=== PATIENT | female | born 1980 | race Caucasian/White ===

== ENCOUNTER 2018-01-27 12:14 | Emergency (ER) | payer MEDICAID ==
[~2018-01-27] VITALS: Ht 172.7 cm; Wt 100.9 kg
[2018-01-27 12:17] VITALS: Ht 172.7 cm; Wt 100.9 kg
[2018-01-27] MEDS ORDERED: TEGRETOL200 MG PO (12:20)
[2018-01-27] MEDS ORDERED: XANAX1 MG PO (12:21)
[2018-01-27] MEDS ORDERED: LEXAPRO20 MG PO (12:22)
[2018-01-27] MEDS ORDERED: ZYPREXA2.5 MG PO (12:22)
[2018-01-27] MEDS ORDERED: ZESTRIL40 MG PO (12:22)
[2018-01-27] MEDS ORDERED: COUMADIN3 MG PO (12:23)
[2018-01-27] MEDS ORDERED: DILANTIN100 MG PO (12:40)
[2018-01-27 13:22] LABS: BASOPHILS 0.2 % (0-2); EOSINOPHILS 1.3 % (0-7); HEMATOCRIT 40.9 % (36.0-48.0); HEMOGLOBIN 13.3 g/dL (12-16); IMMATURE GRANULOCYTES 0.2 % (0-5); LYMPHOCYTES 23.6 % (15-50); MCH 25.2 pg (26.0-34.0); MCHC 32.5 g/dL (31.0-37.0); MCV 77.6 fL (80.0-100.0); MEAN PLATELET VOLUME 10.5 fL (7.4-10.4); MONOCYTES 5.4 % (2-11); NEUTROPHILS 69.3 % (40-80); PLATELET COUNT 311 10x3/uL (130-400); RBC 5.27 10x6/uL (4.00-5.40); RDW 20.3 % (11.5-14.5); WBC 10.2 10x3/uL (4.8-10.8)
[2018-01-27 13:27] LABS: APTT 27.7 SECONDS (22.8-39.4); INR 1.03 (0.85-1.17); PROTIME 13.1 SECONDS (11.6-15.0)
[2018-01-27 13:57] LABS: ALBUMIN 4.2 g/dL (3.4-5.0); ANION GAP 20.6 mmol/L (8-16); BILIRUBIN - TOTAL 0.23 mg/dL (0.2-1.3); CALCIUM 9.4 mg/dL (8.5-10.1); CARBON DIOXIDE 21.4 mmol/L (21.0-32.0); PROTEIN - SERUM 8.1 g/dL (6.4-8.2)
[2018-01-27 14:27] LABS: APPEARANCE CLEAR (CLEAR); COLOR YELLOW (YELLOW); SPECIFIC GRAVITY 1.025 (1.005-1.020)
[2018-01-27 14:28] LABS: BILIRUBIN NEGATIVE (NEGATIVE); GLUCOSE 250 mg/dL (NEGATIVE); KETONE NEGATIVE (NEGATIVE); NITRITE NEGATIVE (NEGATIVE); PROTEIN TRACE mg/dL (NEGATIVE); UROBILINOGEN NORMAL (NORMAL)
[2018-01-27 14:34] LABS: UDS - AMPHET NEGATIVE QUAL (NEGATIVE); UDS - BARB NEGATIVE QUAL (NEGATIVE); UDS - BENZO POSITIVE QUAL (NEGATIVE); UDS - COCAINE NEGATIVE QUAL (NEGATIVE); UDS - OPIATE POSITIVE QUAL (NEGATIVE); UDS - PCP NEGATIVE QUAL (NEGATIVE); UDS - THC NEGATIVE QUAL (NEGATIVE)
[2018-01-27 14:39] LABS: BACTERIA FEW /hpf (NONE SEEN); EPITHELIAL CELLS OCC /hpf (0-5)
[2018-01-27 16:19] VITALS: BP 130/74
== END 2018-01-27 16:19 | disposition other institution (70) ==
LOC: D.ER 12:14
PROVIDERS: Emergency Medicine
DX: G40.909 Epilepsy, unspecified, not intractable, without status epilepticus (principal); F10.20 Alcohol dependence, uncomplicated; F11.20 Opioid dependence, uncomplicated